=== PATIENT | male | born 1930 | race Caucasian/White ===

== ENCOUNTER → 2017-03-15 | Outpatient (CLI) | payer MEDICARE, BC ==
[~2017-03-15] MED LIST: OMNIPAQUE 350 MG/ML, 100ML BOTTLE ONE
== END | disposition home or self-care (01) ==
LOC: CFH 09:54
PROVIDERS: ATTEND Internal Medicine Hematology & Oncology
DX: J81.1 Chronic pulmonary edema (principal); I51.7 Cardiomegaly; I25.10 Atherosclerotic heart disease of native coronary artery without angina pectoris; I70.0 Atherosclerosis of aorta; M48.54XA Collapsed vertebra, not elsewhere classified, thoracic region, initial encounter for fracture; M47.894 Other spondylosis, thoracic region; L72.3 Sebaceous cyst; M51.44 Schmorl's nodes, thoracic region; K44.9 Diaphragmatic hernia without obstruction or gangrene; C61 Malignant neoplasm of prostate; C79.51 Secondary malignant neoplasm of bone
CPT/HCPCS: 71260; 74177; 82565; Q9967

== ENCOUNTER → 2017-03-15 | Outpatient (CLI) | payer MEDICARE, BC | END | disposition home or self-care (01) | LOC: PETCFH 09:58 | PROVIDERS: ATTEND Internal Medicine Hematology & Oncology | DX: C79.51 Secondary malignant neoplasm of bone (principal); C61 Malignant neoplasm of prostate; S22.089D Unspecified fracture of T11-T12 vertebra, subsequent encounter for fracture with routine healing; X58.XXXD Exposure to other specified factors, subsequent encounter | CPT/HCPCS: 78306; A9503 ==

== ENCOUNTER → 2017-09-26 | Outpatient (CLI) | payer MEDICARE, BC | END | disposition home or self-care (01) | LOC: PETCFH 09:04 | PROVIDERS: ATTEND Internal Medicine Hematology & Oncology | DX: N13.30 Unspecified hydronephrosis (principal); K40.90 Unilateral inguinal hernia, without obstruction or gangrene, not specified as recurrent; N13.5 Crossing vessel and stricture of ureter without hydronephrosis; C79.51 Secondary malignant neoplasm of bone; C61 Malignant neoplasm of prostate | CPT/HCPCS: 71260; 74177; 78306; 82565; A9503; Q9967 ==